=== PATIENT | female | born 1940 | race Caucasian/White ===

== ENCOUNTER 2023-09-27 15:58 | Emergency (ER) | payer MEDICARE, SELFPAY ==
[2023-09-27 15:59] VITALS: BP 127/61
[2023-09-27] MEDS: TYLENOL 650 MG PO (18:20)
[2023-09-27 19:06] VITALS: BP 153/73
[2023-09-27 19:36] VITALS: BP 142/62
--- NOTE | 2023-09-27 19:47 | ED.GENMED ---
History of Present Illness
General
Chief Complaint: Musculo-Skeletal Complaint
Source: patient
Exam Limitations: none
Time Seen by Provider: 09/27/23 17:36
Nursing documentation reviewed up to this point in time: agreed with
History of Present Illness
History of Present Illness:
83 Y/O F with h/o ICH, htn, hld
no thinners
here with left headache and neck pain after mechanical trip and fall whle walking up a ramp
she landed on her left shoulder and hip as well
no chest pain, shortness of breath, back pain, abdominal pain
a little nausea, no vomiting, no loc, no confusion
does have pain in her left neck and shoulder
h/o previous cervical fusion
Past History
Past History
ED Past Medical History: CVA, GERD, HTN, Hypercholesterolemia, Hypothyroidism and Other (Intracranial bleed, diverticulitis, osteoarthritis)
ED Past Surgical History: Gynecological and Orthopedic
Social History
Tobacco: Non-smoker
Alcohol: Occasional
Drug: None
Personal:
Living: with family
Employment: Retired
Family History
Family History: Other
Review of Systems
Review of Systems
Allergies reviewed?: Yes
All Other Systems: Not applicable
Phy Exam
Physical Exam
Physical Exam:
GENERAL: Alert , in no apparent distress
HEAD: mild tenderness, no hematoma left parietal scalp
NECK: no midline tenderness, some diffuse left paraspinal tedneress, lordosis of the spine after previous surgery
able to rotate
EYE: pupils equal and reactive, EOMs intact.
ENT: o/p clr, mmm. no hemotympanum
CARDIAC: Regular rate and rhythm, no edema
LUNGS: Clear breath sounds bilaterally, no acute respiratory distress, no wheezes/rales/rhonchi
ABDOMEN: Soft, without focal tenderness, no r/g, no cvat
NEUROLOGICAL: Alert and oriented, no focal neuro deficits, CN intact, 5/5 strength, sensation intact
SKIN: Warm and dry,
MUSCULOSKELETAL: L shoulder slightly painful with ROM but no deformity, no swelling
no humerus tendnress
left hip nontender, no appreciate dSTS
slight pain with flexion and rotation
PSYCH: Normal and appropriate interaction.
Course
Orders/Labs/Results
Orders:
Orders
09/27/23 18:04
CT Cervical Spine W/o Iv Contr Urgent
Comment:
Reason For Exam: left neck pain after fall
CT Head W/o Iv Contrast Urgent
Comment:
Reason For Exam: head strike
Acetaminophen [Tylenol] 650 mg PO NOW STA
CR Shoulder, Trauma - Left Urgent
Comment:
Reason For Exam: left shouldr pain
Hip, Left 2-3 Views [CR Hip - LT w/wo Pel 2-3 Vw*] Urgent
Comment:
Reason For Exam: left hip pain fall
Include a pelvis x-ray?: Yes
Vital Signs
Initial and Last Documented VS:
Initial Vital Signs
Temp Pulse Resp BP Pulse Ox
97.7 F 70 16 127/61 98
09/27/23 15:59 09/27/23 15:59 09/27/23 15:59 09/27/23 15:59 09/27/23 15:59
Last Documented Vital Signs
Temp Pulse Resp BP Pulse Ox
97.7 F 67 16 147/62 98
09/27/23 15:59 09/27/23 20:12 09/27/23 15:59 09/27/23 20:12 09/27/23 15:59
MDM/Problems Addressed
Differential Diagnosis Includes:
Contusion, head injury, cervical strain, fracture
MDM/Problems Addressed:
83-year-old mechanical trip and fall while walking today onto her left head and struck it twice without loss of consciousness but with a headache, left-sided neck pain, left shoulder pain and left hip pain. She was able to get up and walk. She is
able to range her hip with some discomfort and her shoulder. She does have a chronic rotator cuff tear. She also has previous neck surgery. She had no midline tenderness but some pain with range of motion. There were no significant hematomas on
her scalp. She is neurologically intact and not on any anticoagulants. Imaging all reviewed by me and negative for any fractures. She does have some incidental arthritis in postoperative changes in her spine. Brain precautions as needed and for
rest for possible concussion, though I suspect a minor head injury. Follow-up with family doctor, Tylenol for pain
*Critical Care Note
Total Time (30-74mins, 75-104mins- exclusive of procedures): Not Applicable
ED Attending Note
-
Portions of this chart may have been created with voice recognition software.� Occasional wrong word or��sound alike� substitutions may have occurred due to the inherent limitations of voice recognition software.
Discharge Plan
Departure
Patient Disposition: Home (Routine Discharge)
Date of Disposition: 09/27/23
Time of Disposition: 19:53
Patient with high blood pressure during this ER visit?: Yes
Condition: Fair
Covid-19: Not Applicable
Discharge Problem:
Mild closed head injury, Cervical muscle strain, Contusion
Instructions: Minor Head Injury, Adult ED, Contusion
Prescriptions:
No Action
cranberry 500 MG capsule
500 mg PO DAILY
Blood Pressure Medication
1 tab PO HS
Patient Comments:
01/18/2021: PT DOES NOT REMEMBER NAME OR STRENGTH. DR MCCORMICK NOT COMING UP WITH ANYTHING. USES [facility] IN [place]
Cholesterol Medication
1 tab PO HS
Patient Comments:
01/18/2021: PT DOES NOT REMEMBER NAME OR STRENGTH. DR MCCORMICK NOT COMING UP WITH ANYTHING. USES [facility] IN [place]
venlafaxine [Effexor XR] 37.5 MG capsule,extended release 24hr
37.5 mg PO DAILY
Patient Comments:
01/18/2021: TAKEN W/ 150MG = 187.5MG
gabapentin [Neurontin] 600 MG tablet
600 mg PO BID
venlafaxine [Effexor XR] 150 MG capsule,extended release 24hr
150 mg PO DAILY
Patient Comments:
01/18/2021: TAKEN W/ 37.5MG = 187.5MG
levothyroxine 100 MCG tablet
100 mcg PO Q48H
levothyroxine 88 MCG tablet
88 mcg PO Q48H
cholecalciferol (vitamin D3) 1,000 UNITS tablet
1,000 units PO DAILY
Lactobac 2-Bifido 1-S. therm [High Potency Probiotic] 1 CAP capsule
1 cap PO DAILY
multivitamin with folic acid [Tab-A-Karla] 1 TABLET tablet
1 tab PO DAILY
acetaminophen 325 MG tablet
650 mg PO Q4HPRN PRN (Reason: mild pain/ROSA/temp> 100.4F) 0RF
tramadol 50 MG tablet
25 mg PO Q6HPRN PRN (Reason: mod pain) 5 Days Qty: 15 0RF
metronidazole 500 MG tablet
500 mg PO TID 7 Days Qty: 21 0RF
albuterol sulfate 1 PUFF HFA aerosol inhaler
2 puff inhalation R Q4HPRN PRN (Reason: wheezing) Qty: 1 0RF
metronidazole 500 MG tablet
500 mg PO TID Qty: 29 0RF
levofloxacin 500 MG tablet
500 mg PO DAILY Qty: 9 0RF
hydrocodone-acetaminophen 1 TABLET tablet
1 tab PO Q4HPRN PRN (Reason: severe pain) Qty: 8 0RF
promethazine 25 MG tablet
25 mg PO Q6HPRN PRN (Reason: nausea) Qty: 8 0RF
prednisone 10 mg Tablet
See Rx Instructions .ROUTE .COMPLEX Qty: 30 0RF
Rx Instructions:
Take By Mouth:
40 mg daily x3 days, 30 mg daily x3 days,
20 mg daily x3 days, 10 mg daily x3 days.
hydrocodone-chlorpheniramine 10-8 mg/5 mL suspension,extended rel 12 hr
5 ml PO Q12H PRN (Reason: cough) Qty: 70 0RF
hydrocodone-acetaminophen 5-300 mg tablet
1 tab PO Q4H PRN (Reason: pain) Qty: 14 0RF
prednisone 20 mg tablet
40 mg PO DAILY Qty: 10 0RF
albuterol sulfate 90 mcg/actuation HFA aerosol inhaler
2 puff inhalation QID PRN (Reason: shortness of breath or wheezing) Qty: 6.7 0RF
Referrals:
Trinity Rothman, [Family Provider] - Follow up in 2-3 days
Activity Restrictions/Additional Instructions:
YOUR CAT SCANS AND XRAYS DO NOT SHOW ANY SIGN OF FRACTURES OR SERIOUS HEAD TRAUMA
TYLENOL EVERY 6 HOURS NEEDED FOR PAIN
ICE OFF AND ON
REST YOUR BRAIN - NO READING/TV/PHONE/COMPUTER IF YOU ARE HAVING HEADACHES, FOR 2 DAYS TO AVOID STRAINING AND PAIN
FOLLOW UP WITH YOUR DOCTOR AN OUTPATIENT
RETURN FOR ANY CONCERNS.
Interventions
Interventions:
*Risk Screen - Suicide Last Done: 09/27/23 17:13
*General Assessment Last Done: 09/27/23 15:59
*Neglect/Abuse Screening Last Done: 09/27/23 17:13
*ED COVID-19 Vaccine History Last Done: 09/27/23 15:59
*Nursing Disposition Last Done: 09/27/23 20:12
ED-Musculoskeletal Assessment Last Done: 09/27/23 17:13
Discharge Date and Time
Discharge Date/Time: 09/27/23 20:23
Print Language: DJIBOUTIAN
[2023-09-27 20:12] VITALS: BP 147/62
== END 2023-09-27 20:23 | disposition home or self-care (01) ==
LOC: EMR 15:58
PROVIDERS: EMERGENCY PHYSICIAN Emergency Medicine; FAMILY PHYSICIAN Family Medicine
DX: S09.90XA Unspecified injury of head, initial encounter (principal); S16.1XXA Strain of muscle, fascia and tendon at neck level, initial encounter; W01.0XXA Fall on same level from slipping, tripping and stumbling without subsequent striking against object, initial encounter; R51.9 Headache, unspecified; M54.2 Cervicalgia; I10 Essential (primary) hypertension; E78.00 Pure hypercholesterolemia, unspecified; K21.9 Gastro-esophageal reflux disease without esophagitis; E03.9 Hypothyroidism, unspecified; Z86.73 Personal history of transient ischemic attack (TIA), and cerebral infarction without residual deficits; Z96.642 Presence of left artificial hip joint
CPT/HCPCS: 99284; 70450; 72125; 73030; 73502

== ENCOUNTER 2023-11-09 20:05 | Emergency (ER) | payer MEDICARE, SELFPAY ==
[2023-11-09 20:08] VITALS: BP 134/66
[2023-11-09 20:32] VITALS: BMI 31.1
--- NOTE | 2023-11-09 20:37 | ED.GENMED ---
History of Present Illness
General
Chief Complaint: Abdominal Pain
Source: patient
Exam Limitations: none
Time Seen by Provider: 11/09/23 20:27
Nursing documentation reviewed up to this point in time: agreed with
History of Present Illness
History of Present Illness:
Patient presents to ED secondary to worsening left-sided abdominal pain with decreased appetite over the past 2 weeks. Patient was evaluated by her primary care physician in the office and was given diagnosis of possible diverticulitis.
Antibiotics was called into pharmacy, but patient was found to be allergic to that antibiotics. Alternative antibiotics was not called in, as her primary care physician went on vacation. Denies fever or chills. Denies vomiting or diarrhea.
Patient has not been able to have bowel movements since onset of her pain. Abdominal pain described as sharp, nonradiating, without any alleviating or exacerbating factors. Patient states that she has had history of diverticulitis, but states her
symptoms today are different.
Past History
Past History
ED Past Medical History: CVA, GERD, HTN, Hypercholesterolemia, Hypothyroidism and Other (Intracranial bleed, diverticulitis, osteoarthritis)
ED Past Surgical History: Gynecological and Orthopedic
Social History
Tobacco: Non-smoker
Alcohol: Occasional
Drug: None
Personal:
Living: with family
Employment: Retired
Family History
Family History: Other
Review of Systems
Review of Systems
Allergies reviewed?: Yes
All Other Systems: ROS reviewed and negative except as documented in HPI and ROS
Constitutional: Reports no symptoms
Respiratory: Reports no symptoms
Cardiac: Reports no symptoms
ABD/GI: Reports abdominal pain; Denies vomiting or diarrhea
Musculoskeletal: Reports no symptoms
Skin: Reports no symptoms
Neurological: Reports no symptoms
Phy Exam
Physical Exam
Physical Exam:
Physical Exam
General: moderate distress, not acutely ill. afebrile
Head: nc/at. eomi
Neck: supple. no meningeal signs.
Heart: s1/s2 regular rate and rhythm, no murmur. equal radial pulses.
Lungs: no acute respiratory distress. clear bilaterally
Abdomen: normal bowel sounds. mild LLQ tenderness to palpation with mild distention.
Neuro: alert and oriented. no focal neurological deficits
Skin: no rash
Psychiatric: well kept. interactive and cooperative
Extremities: no edema. no calf tenderness.
Course
Orders/Labs/Results
Orders:
Orders
11/09/23 20:37
CT Abd/pelvis W Iv Cont Urgent
Comment:
Reason For Exam: LLQ pain
HYDROmorphone [Dilaudid] 0.5 mg IV NOW STA
11/09/23 20:38
0.9% Sodium Chloride 500 ml [Nss] 500 ml IV BOLUS
11/09/23 20:42
Complete Blood Count/With Diff Urgent
Comprehensive Metabolic Panel Urgent
Magnesium Urgent
11/09/23 22:13
MetroNIDAZOLE [Flagyl] 500 mg PO NOW STA
11/09/23 22:14
LevoFLOXacin [Levaquin] 500 mg PO NOW STA
Abnormal Lab Results
11/09/23
20:42
RBC 4.17 L 10^6/uL
(4.20-5.40)
Hct 36.9 L %
(37.0-47.0)
Absolute Monos (auto) 0.8 H 10^3/uL
(0.1-0.6)
Monocytes % 10.9 H %
(1.7-9.3)
BUN 21 H mg/dl
(7-17)
11/09/23 20:42
11/09/23 20:42
Vital Signs
Initial and Last Documented VS:
Initial Vital Signs
Temp Pulse Resp BP Pulse Ox
98.1 F 72 18 134/66 95
11/09/23 20:08 11/09/23 20:08 11/09/23 20:08 11/09/23 20:08 11/09/23 20:08
Last Documented Vital Signs
Temp Pulse Resp BP Pulse Ox
98.1 F 65 14 134/66 95
11/09/23 20:08 11/09/23 20:45 11/09/23 20:45 11/09/23 20:08 11/09/23 20:45
MDM/Problems Addressed
MDM/Problems Addressed:
History, exam, and CT scan consistent with an acute diverticulitis, without evidence of perforation or abscess. Blood work unremarkable. Otherwise, patient remains afebrile and hemodynamically stable, and reports improvement symptoms after
treatment. After discussion with patient and family, decision made to discharge patient home with antibiotics. As patient successfully has taken Levaquin/Flagyl, with her previous episode of diverticulitis, patient will be given prescription for
Levaquin and Flagyl, along with recommendation for PCP follow-up. Advised to return to ED with worsening symptoms, i.e. fever/worsening pain/vomiting.
*Critical Care Note
Total Time (30-74mins, 75-104mins- exclusive of procedures): Not Applicable
ED Attending Note
-
Portions of this chart may have been created with voice recognition software.� Occasional wrong word or��sound alike� substitutions may have occurred due to the inherent limitations of voice recognition software.
Discharge Plan
Departure
Patient Disposition: Home (Routine Discharge)
Date of Disposition: 11/09/23
Time of Disposition: 22:15
Patient with high blood pressure during this ER visit?: Yes
Discharge Problem:
Diverticulitis
Instructions: Diverticulitis (DC)
Prescriptions:
New
levofloxacin 500 mg tablet
500 mg PO DAILY Qty: 9 0RF
metronidazole 500 mg tablet
500 mg PO TID Qty: 29 0RF
oxycodone-acetaminophen [Percocet] 5-325 mg Tablet
1 tab PO Q6HPRN PRN (Reason: pain) Qty: 8 0RF
ondansetron 4 mg Tablet,Disintegrating
4 mg PO TIDPRN PRN (Reason: nausea/vomiting) Qty: 12 0RF
No Action
cranberry 500 MG capsule
500 mg PO DAILY
Blood Pressure Medication
1 tab PO HS
Patient Comments:
01/18/2021: PT DOES NOT REMEMBER NAME OR STRENGTH. DR MCCORMICK NOT COMING UP WITH ANYTHING. USES [facility] IN [place]
Cholesterol Medication
1 tab PO HS
Patient Comments:
01/18/2021: PT DOES NOT REMEMBER NAME OR STRENGTH. DR MCCORMICK NOT COMING UP WITH ANYTHING. USES [facility] IN [place]
venlafaxine [Effexor XR] 37.5 MG capsule,extended release 24hr
37.5 mg PO DAILY
Patient Comments:
01/18/2021: TAKEN W/ 150MG = 187.5MG
gabapentin [Neurontin] 600 MG tablet
600 mg PO BID
venlafaxine [Effexor XR] 150 MG capsule,extended release 24hr
150 mg PO DAILY
Patient Comments:
01/18/2021: TAKEN W/ 37.5MG = 187.5MG
levothyroxine 100 MCG tablet
100 mcg PO Q48H
levothyroxine 88 MCG tablet
88 mcg PO Q48H
cholecalciferol (vitamin D3) 1,000 UNITS tablet
1,000 units PO DAILY
Lactobac 2-Bifido 1-S. therm [High Potency Probiotic] 1 CAP capsule
1 cap PO DAILY
multivitamin with folic acid [Tab-A-Karla] 1 TABLET tablet
1 tab PO DAILY
acetaminophen 325 MG tablet
650 mg PO Q4HPRN PRN (Reason: mild pain/ROSA/temp> 100.4F) 0RF
tramadol 50 MG tablet
25 mg PO Q6HPRN PRN (Reason: mod pain) 5 Days Qty: 15 0RF
metronidazole 500 MG tablet
500 mg PO TID 7 Days Qty: 21 0RF
albuterol sulfate 1 PUFF HFA aerosol inhaler
2 puff inhalation R Q4HPRN PRN (Reason: wheezing) Qty: 1 0RF
metronidazole 500 MG tablet
500 mg PO TID Qty: 29 0RF
levofloxacin 500 MG tablet
500 mg PO DAILY Qty: 9 0RF
hydrocodone-acetaminophen 1 TABLET tablet
1 tab PO Q4HPRN PRN (Reason: severe pain) Qty: 8 0RF
promethazine 25 MG tablet
25 mg PO Q6HPRN PRN (Reason: nausea) Qty: 8 0RF
prednisone 10 mg Tablet
See Rx Instructions .ROUTE .COMPLEX Qty: 30 0RF
Rx Instructions:
Take By Mouth:
40 mg daily x3 days, 30 mg daily x3 days,
20 mg daily x3 days, 10 mg daily x3 days.
hydrocodone-chlorpheniramine 10-8 mg/5 mL suspension,extended rel 12 hr
5 ml PO Q12H PRN (Reason: cough) Qty: 70 0RF
hydrocodone-acetaminophen 5-300 mg tablet
1 tab PO Q4H PRN (Reason: pain) Qty: 14 0RF
prednisone 20 mg tablet
40 mg PO DAILY Qty: 10 0RF
albuterol sulfate 90 mcg/actuation HFA aerosol inhaler
2 puff inhalation QID PRN (Reason: shortness of breath or wheezing) Qty: 6.7 0RF
Referrals:
Trinity Rothman, [Family Provider] -
Activity Restrictions/Additional Instructions:
As discussed, please follow-up with your primary care doctor for further evaluation and treatment. Please return to ED with worsening symptoms, i.e. fever/worsening pain/vomiting. Your prescriptions have been sent electronically to [facility]
pharmacy in [place].
Interventions
Interventions:
*Risk Screen - Suicide Last Done: 11/09/23 20:08
*General Assessment Last Done: 11/09/23 20:08
*Neglect/Abuse Screening Last Done: 11/09/23 20:08
ED- Fall Risk Assessment Last Done: 11/09/23 20:33
*ED COVID-19 Vaccine History Last Done: 11/09/23 20:19
*Nursing Disposition Last Done: 11/09/23 22:54
SJ-Dkhbph-Enjfczhnxr Assessment Last Done: 11/09/23 20:33
Discharge Date and Time
Discharge Date/Time: 11/09/23 22:55
Print Language: BELARUSIAN
[2023-11-09] MEDS: NSS 500 IV (20:45)
[2023-11-09] MEDS: DILAUDID 0.5 MG IV (20:45)
[2023-11-09 20:48] LABS: % Basophils 0.7 % (0-2); % Eosinophils 4.7 % (0-6); % Immature Granulocytes 0.3 % (0-0.5); % Lymphocytes 37.3 % (20.5-51.1); % Monocytes 10.9 % (1.7-9.3); % Neutrophils 46.1 % (42.2-75.2); Absolute Basophils 0.1 10^3/uL (0-0.2); Absolute Eosinophils 0.4 10^3/uL (0-0.7); Absolute Lymphocytes 2.8 10^3/uL (1.2-3.4); Absolute Monocytes 0.8 10^3/uL (0.1-0.6); Absolute Neutrophils 3.4 10^3/uL (1.4-6.5); Hematocrit 36.9 % (37.0-47.0); Hemoglobin 12.9 g/dL (12.0-16.0); Mean Corpuscular Hgb 30.9 pg (27.0-31.0); Mean Corpuscular Volume 88.5 fL (81.0-99.0); Mean Platelet Volume 9.2 fL (7.4-10.4); Nucleated Red Blood Cells % 0 %; Platelet Count 232 10^3/uL (130-400); Red Blood Cell Count 4.17 10^6/uL (4.20-5.40); Red Cell Dist. Width 12.7 % (11.5-14.5); White Blood Cell Count 7.4 10^3/uL (4.8-10.8)
[2023-11-09 21:06] LABS: ALT (SGPT) 21 U/L (0-35); AST (SGOT) 28 U/L (14-36); Albumin 4.3 g/dl (3.5-5.0); Alkaline Phosphatase 91 U/L (38-126); Blood Urea Nitrogen 21 mg/dl (7-17); Carbon Dioxide 26 mmol/L (22-30); Chloride 105 mmol/L (98-107); Estimated Creatinine Clearance 61 ml/min; Glucose 87 mg/dl (70-99); Magnesium 1.8 mg/dl (1.6-2.3); Sodium 138 mmol/L (135-145); Total Bilirubin 0.4 mg/dl (0.2-1.3); Total Protein 6.7 g/dl (6.3-8.2); eGFR > 60.00
[2023-11-09] MEDS: LEVAQUIN 500 MG PO (22:39)
[2023-11-09] MEDS: FLAGYL 500 MG PO (22:39)
== END 2023-11-09 22:55 | disposition home or self-care (01) ==
LOC: EMR 20:05
PROVIDERS: EMERGENCY PHYSICIAN Emergency Medicine; FAMILY PHYSICIAN Family Medicine
DX: K57.32 Diverticulitis of large intestine without perforation or abscess without bleeding (principal); K21.9 Gastro-esophageal reflux disease without esophagitis; I10 Essential (primary) hypertension; E78.00 Pure hypercholesterolemia, unspecified; E03.9 Hypothyroidism, unspecified; M19.90 Unspecified osteoarthritis, unspecified site; Z86.73 Personal history of transient ischemic attack (TIA), and cerebral infarction without residual deficits
CPT/HCPCS: 99284; 96374; 74177; 80053; 83735; 85025; Q9967

== ENCOUNTER 2023-11-12 16:05 | Emergency (ER) | payer MEDICARE, SELFPAY ==
[2023-11-12 16:07] VITALS: BP 166/89
--- NOTE | 2023-11-12 16:16 | ED.PDOC.TRB ---
ED Provider Triage
-
83 female with increased abdominal pain. Was here 11/08 and diagnosed with diverticulitis. Started on levaquin/flagyl. Pain is worsened, now with chills. Quite tender on exam. Has been hospitalized in the past for diverticulitis. Zofran ordered,
labs ordered. Repeat CT ordered to eval for abscess/perforation.
[2023-11-12] MEDS: TORADOL 15 MG IV (16:31)
[2023-11-12] MEDS: ZOFRAN 4 MG IV (16:32)
[2023-11-12 17:05] LABS: ALT (SGPT) 20 U/L (0-35); AST (SGOT) 33 U/L (14-36); Albumin 4.5 g/dl (3.5-5.0); Alkaline Phosphatase 81 U/L (38-126); Blood Urea Nitrogen 22 mg/dl (7-17); Calcium 10.2 mg/dl (8.4-10.2); Carbon Dioxide 25 mmol/L (22-30); Chloride 106 mmol/L (98-107); Glucose 102 mg/dl (70-99); Potassium 3.8 mmol/L (3.5-5.1); Sodium 139 mmol/L (135-145); Total Bilirubin 0.4 mg/dl (0.2-1.3); Total Protein 6.8 g/dl (6.3-8.2); eGFR > 60.00
[2023-11-12 17:16] LABS: % Basophils 0.8 % (0-2); % Eosinophils 2.9 % (0-6); % Immature Granulocytes 0.3 % (0-0.5); % Lymphocytes 27.7 % (20.5-51.1); % Monocytes 8.8 % (1.7-9.3); % Neutrophils 59.5 % (42.2-75.2); Absolute Basophils 0.1 10^3/uL (0-0.2); Absolute Eosinophils 0.2 10^3/uL (0-0.7); Absolute Lymphocytes 2.1 10^3/uL (1.2-3.4); Absolute Monocytes 0.7 10^3/uL (0.1-0.6); Absolute Neutrophils 4.6 10^3/uL (1.4-6.5); Hematocrit 40.4 % (37.0-47.0); Mean Corp Hgb Conc. 34.7 g/dL (33.0-37.0); Mean Corpuscular Hgb 31.2 pg (27.0-31.0); Mean Platelet Volume 9.6 fL (7.4-10.4); Nucleated Red Blood Cells % 0 %; Platelet Count 259 10^3/uL (130-400); Red Blood Cell Count 4.49 10^6/uL (4.20-5.40); Red Cell Dist. Width 12.5 % (11.5-14.5); White Blood Cell Count 7.7 10^3/uL (4.8-10.8)
[2023-11-12 17:26] VITALS: BMI 30.7
[2023-11-12 17:32] VITALS: BP 152/67
[2023-11-12 18:00] VITALS: BP 140/73
--- NOTE | 2023-11-12 19:06 | ED.GENMED ---
History of Present Illness
General
Chief Complaint: Abdominal Pain
Source: patient and spouse
Time Seen by Provider: 11/12/23 18:49
History of Present Illness
History of Present Illness:
83-year-old female presents to the emergency room complaining of abdominal pain. Patient was seen here in the emergency room 3 days ago for similar symptoms. She had a CAT scan which revealed diverticulitis. Patient was discharged on Levaquin and
Flagyl. Patient feels the pain is increased in intensity. Pain was quite severe yesterday and this morning. She was given some analgesia after being evaluated in triage which has helped significantly. She has mild nausea but has not vomited. No
fever, chills. Patient is also been experiencing constipation for the past week or so.
Past History
Past History
ED Past Medical History: CVA, GERD, HTN, Hypercholesterolemia, Hypothyroidism and Other (Intracranial bleed, diverticulitis, osteoarthritis)
ED Past Surgical History: Gynecological and Orthopedic
Social History
Tobacco: Non-smoker
Alcohol: Occasional
Drug: None
Personal:
Living: with family
Employment: Retired
Family History
Family History: Other
Phy Exam
Physical Exam
Physical Exam:
General: Awake, Alert, Oriented X3. No acute distress, appears stated age
Vitals: unremarkable
Head: Atraumatic
Eyes: Pupils equal, EOMI
Throat: Airway intact, no exudates, mildly dry mucosa
Neck: Trachea midline
Lungs: Clear and equal b/l
Heart: Regular rate, no murmurs
Abd: Soft, moderate tenderness diffusely with significant tenderness in the left lower quadrant, does not appear to have a surgical abdomen, no pulsatile mass
Neuro: Nonfocal
Skin: Warm, dry, no rash
Extremities: pulses equal b/l, no edema
Course
Orders/Labs/Results
Orders:
Orders
11/12/23 16:09
IV Insert/Care/Rem.- Treatment PRN
11/12/23 16:14
CT Abd/pelvis W Iv Cont Urgent
Comment:
Reason For Exam: LLQ pain
Ondansetron Injectable [Zofran] 4 mg IV NOW STA
11/12/23 16:28
Ketorolac [Toradol] 15 mg IV NOW STA
11/12/23 16:35
Complete Blood Count/With Diff Urgent
Comprehensive Metabolic Panel Urgent
11/12/23 19:10
MetroNIDAZOLE 500 MG/100 ML [Flagyl 500 mg] 100 ml IV NOW
11/12/23 21:19
Acetaminophen [Tylenol] 1,000 mg PO NOW STA
Lactulose [Duphalac/Chronulac] 20 grams PO NOW STA
Abnormal Lab Results
11/12/23
16:35
MCH 31.2 H pg
(27.0-31.0)
Absolute Monos (auto) 0.7 H 10^3/uL
(0.1-0.6)
BUN 22 H mg/dl
(7-17)
Glucose 102 H mg/dl
(70-99)
11/12/23 16:35
11/12/23 16:35
Vital Signs
Initial and Last Documented VS:
Initial Vital Signs
Temp Pulse Resp BP Pulse Ox
98.3 F 73 20 166/89 98
11/12/23 16:07 11/12/23 16:07 11/12/23 16:07 11/12/23 16:07 11/12/23 16:07
Last Documented Vital Signs
Temp Pulse Resp BP Pulse Ox
98.3 F 63 16 133/80 94
11/12/23 16:07 11/12/23 18:00 11/12/23 18:00 11/12/23 20:00 11/12/23 20:45
MDM/Problems Addressed
Differential Diagnosis Includes:
Microperforation, abscess formation, persistent diverticulitis,
MDM/Problems Addressed:
Patient presents with pain that has not improved despite antibiotics. Reviewing patient's's visit I see history CAT scan this. Her exam suggests she does not have carmen free air but she certainly may have a microperforation developing abscess.
CT actually showed resolution of diverticulitis. Current radiology report shows no evidence of diverticulitis. She does have stool throughout the colon on my observation. Patient's pointed out that she has not had a bowel been in over a
week. Perhaps her pain is more due to constipation than diverticulitis. She should certainly continue the antibiotics but we will also start laxatives in the form of lactulose. I do not believe the patient has progression or. Has failed
outpatient management of diverticulitis as her white count is normal and the CAT scan has improved. Patient will return if she is not feeling better after using the lactulose.
*Radiology
Radiology exam reviewed: radiology read reviewed
*Pulse Oximetry
Patient hypoxic: no
*Critical Care Note
Total Time (30-74mins, 75-104mins- exclusive of procedures): Not Applicable
Patient Management
Social determinants of health affecting care: Living situation and Strong social support
ED Attending Note
-
Portions of this chart may have been created with voice recognition software.� Occasional wrong word or��sound alike� substitutions may have occurred due to the inherent limitations of voice recognition software.
Discharge Plan
Departure
Patient Disposition: Home (Routine Discharge)
Date of Disposition: 11/12/23
Time of Disposition: 21:17
Patient with high blood pressure during this ER visit?: No
Condition: Good
Discharge Problem:
Diverticulitis, Constipation
Instructions: Constipation, Adult (DC), Diverticulitis (DC)
Prescriptions:
New
ondansetron 4 mg tablet,disintegrating
4 mg PO TID PRN (Reason: nausea and vomiting) Qty: 20 0RF
lactulose 20 gram/30 mL solution
20 g PO BID Qty: 1200 0RF
Rx Instructions:
Take twice a day until you feel you have had adequate bowel movements
No Action
cranberry 500 MG capsule
500 mg PO DAILYPRN PRN (Reason: Supplement)
venlafaxine [Effexor XR] 150 MG capsule,extended release 24hr
150 mg PO DAILY
Patient Comments:
taken w/ 75mg = 225mg
levothyroxine 100 MCG tablet
100 mcg PO DAILY
multivitamin with folic acid [Tab-A-Karla] 1 TABLET tablet
1 tab PO DAILY
venlafaxine 75 mg capsule,extended release 24hr
75 mg PO DAILY
Patient Comments:
taken w/ 150mg = 225mg
ondansetron HCl 4 mg tablet
4 mg PO BIDPRN PRN (Reason: nausea/vomiting)
ciprofloxacin HCl 500 mg tablet
500 mg PO BID
trazodone 100 mg tablet
100 mg PO HS
ergocalciferol (vitamin D2) 1,250 mcg (50,000 unit) capsule
1,250 mcg PO MO
losartan 100 mg tablet
100 mg PO DAILY
fenofibrate 160 mg tablet
160 mg PO DAILY
albuterol sulfate 90 mcg/actuation HFA aerosol inhaler
2 puff inhalation R Q4HPRN PRN (Reason: shortness of breath or wheezing)
Referrals:
UNKNOWN - PT DOES,NOT KNOW [Family Provider] -
Interventions
Interventions:
*Risk Screen - Suicide Last Done: 11/12/23 16:07
*General Assessment Last Done: 11/12/23 16:07
*Neglect/Abuse Screening Last Done: 11/12/23 16:07
ED- Fall Risk Assessment Last Done: 11/12/23 17:27
*ED COVID-19 Vaccine History Last Done: 11/12/23 17:27
*Nursing Disposition Last Done: 11/12/23 21:50
SX-Vttkxi-Wcofxrbxhp Assessment Last Done: 11/12/23 17:28
Discharge Date and Time
Discharge Date/Time: 11/12/23 21:50
Print Language: THAI
[2023-11-12 19:30] VITALS: BP 159/65
[2023-11-12] MEDS: FLAGYL 500 MG 100 IV (19:32)
[2023-11-12 20:00] VITALS: BP 133/80
[2023-11-12] MEDS: TYLENOL 1000 MG PO (21:28)
[2023-11-12] MEDS: DUPHALAC/CHRONULAC 20 GRAMS PO (21:28)
== END 2023-11-12 21:50 | disposition home or self-care (01) ==
LOC: EMR 16:05
PROVIDERS: Physician Assistant; EMERGENCY PHYSICIAN Emergency Medicine
DX: K57.32 Diverticulitis of large intestine without perforation or abscess without bleeding (principal); K59.00 Constipation, unspecified; R11.0 Nausea; I10 Essential (primary) hypertension; K21.9 Gastro-esophageal reflux disease without esophagitis; E78.00 Pure hypercholesterolemia, unspecified; E03.9 Hypothyroidism, unspecified; M19.90 Unspecified osteoarthritis, unspecified site; Z86.73 Personal history of transient ischemic attack (TIA), and cerebral infarction without residual deficits; Z88.1 Allergy status to other antibiotic agents; Z88.5 Allergy status to narcotic agent; Z88.0 Allergy status to penicillin; Z88.8 Allergy status to other drugs, medicaments and biological substances; Z91.048 Other nonmedicinal substance allergy status
CPT/HCPCS: 99285; 96375 ×2; 96365; 74177; 80053; 85025; Q9967

== ENCOUNTER 2024-02-24 12:37 | Emergency (ER) | payer MEDICARE, SELFPAY ==
[2024-02-24 12:40] VITALS: BP 181/97
[2024-02-24 13:23] VITALS: BMI 29.2
[2024-02-24 13:31] LABS: % Basophils 1.2 % (0-2); % Eosinophils 2.5 % (0-6); % Immature Granulocytes 0.2 % (0-0.5); % Monocytes 8.9 % (1.7-9.3); % Neutrophils 46.2 % (42.2-75.2); Absolute Basophils 0.1 10^3/uL (0-0.2); Absolute Eosinophils 0.2 10^3/uL (0-0.7); Absolute Lymphocytes 2.7 10^3/uL (1.2-3.4); Absolute Monocytes 0.6 10^3/uL (0.1-0.6); Hemoglobin 14.2 g/dL (12.0-16.0); Mean Corpuscular Hgb 30.8 pg (27.0-31.0); Mean Corpuscular Volume 93.3 fL (81.0-99.0); Mean Platelet Volume 9.2 fL (7.4-10.4); Nucleated Red Blood Cells % 0 %; Platelet Count 228 10^3/uL (130-400); Red Blood Cell Count 4.61 10^6/uL (4.20-5.40); Red Cell Dist. Width 13.2 % (11.5-14.5); White Blood Cell Count 6.5 10^3/uL (4.8-10.8)
[2024-02-24 13:46] LABS: ALT (SGPT) 24 U/L (0-35); AST (SGOT) 31 U/L (14-36); Albumin 4.4 g/dl (3.5-5.0); Alkaline Phosphatase 80 U/L (38-126); Blood Urea Nitrogen 15 mg/dl (7-17); Calcium 10.1 mg/dl (8.4-10.2); Carbon Dioxide 29 mmol/L (22-30); Chloride 104 mmol/L (98-107); Estimated Creatinine Clearance 71 ml/min; Glucose 87 mg/dl (70-99); Lipase 34 U/L (23-300); Potassium 4.2 mmol/L (3.5-5.1); Sodium 141 mmol/L (135-145); Total Bilirubin 0.7 mg/dl (0.2-1.3); Total Protein 6.8 g/dl (6.3-8.2); eGFR > 60.00
--- NOTE | 2024-02-24 14:04 | ED.GENMED ---
History of Present Illness
<Breanna Pereira MD, Resident - Last Filed: 02/24/24 14:50>
General
Chief Complaint: Abdominal Symptoms
Time Seen by Provider: 02/24/24 13:37
History of Present Illness
History of Present Illness:
83-year-old female with past medical history of diverticulitis, constipation, CVA, GERD, hypertension, hyper cholesterolemia hypothyroidism presenting to ED with lower abdominal pain since 2 weeks ago. Patient notes pain is intermittent,
radiates to the back and is relieved with Tylenol. Notes nausea when bending forward. Has had chills but no fever. Denies vomiting, melena, hematochezia, urinary symptoms, loose stools, cough, change in bowel movements. Was treated with
antibiotics (penicillin and Keflex) for a sinus infection about 2 weeks ago.
<Bowen Barrera MD - Last Filed: 02/24/24 23:02>
General
Source: patient
Exam Limitations: none
Nursing documentation reviewed up to this point in time: agreed with
Past History
<Breanna Pereira MD, Resident - Last Filed: 02/24/24 14:50>
Past History
ED Past Medical History: CVA, GERD, HTN, Hypercholesterolemia, Hypothyroidism and Other (Intracranial bleed, diverticulitis, osteoarthritis)
ED Past Surgical History: Gynecological and Orthopedic
Social History
Tobacco: Non-smoker
Alcohol: Occasional
Drug: None
Personal:
Living: with family
Employment: Retired
Family History
Family History: Other
Review of Systems
<Breanna Pereira MD, Resident - Last Filed: 02/24/24 14:50>
Review of Systems
Constitutional: Reports chills
EENT: Reports no symptoms
Respiratory: Reports no symptoms
Cardiac: Reports no symptoms
ABD/GI: Reports abdominal pain (Left lower) and nausea
: Reports no symptoms
Musculoskeletal: Reports no symptoms
Skin: Reports no symptoms
Neurological: Reports no symptoms
Endocrine: Reports no symptoms
Hematologic/Lymphatic: Reports no symptoms
Psychiatric: Reports no symptoms
Phy Exam
<Breanna Pereira MD, Resident - Last Filed: 02/24/24 14:50>
Physical Exam
Physical Exam:
GENERAL: Alert, in no apparent distress
EYE: pupils equal and reactive
NECK: Supple, no significant adenopathy. Surgical incision seen on anterior upper chest.
ENT: o/p clr, mmm.
CARDIAC: Regular rate and rhythm.
LUNGS: Clear breath sounds bilaterally, no acute respiratory distress, no wheezes/rales/rhonchi
ABDOMEN: Soft, mild tenderness in left lower quadrant, no r/g, no cvat.
NEUROLOGICAL: Alert and oriented, no focal neuro deficits
SKIN: Warm and dry, skin intact.
MUSCULOSKELETAL: No edema, well perfused.
PSYCH: Normal and appropriate interaction.
Course
<Breanna Pereira MD, Resident - Last Filed: 02/24/24 14:50>
Orders/Labs/Results
Orders:
Orders
02/24/24 13:25
Complete Blood Count/With Diff Urgent
Comprehensive Metabolic Panel Urgent
Lipase Urgent
02/24/24 15:09
CT Abd/pelvis W Iv Cont Urgent
Comment:
Reason For Exam: LLQ pain
Ketorolac [Toradol] 15 mg .ROUTE .STK-MED ONE
Ketorolac [Toradol] 15 mg IV NOW STA
Pantoprazole [Protonix IV] 40 mg .ROUTE .STK-MED ONE
Pantoprazole [Protonix IV] 40 mg IV NOW STA
02/24/24 13:25
02/24/24 13:25
Vital Signs
Initial and Last Documented VS:
Initial Vital Signs
Temp Pulse Resp BP Pulse Ox
98.0 F 76 18 181/97 96
02/24/24 12:40 02/24/24 12:40 02/24/24 12:40 02/24/24 12:40 02/24/24 12:40
Last Documented Vital Signs
Temp Pulse Resp BP Pulse Ox
98.0 F 65 18 170/77 97
02/24/24 12:40 02/24/24 15:12 02/24/24 15:12 02/24/24 15:12 02/24/24 15:12
<Bowen Barrera MD - Last Filed: 02/24/24 23:02>
Orders/Labs/Results
Orders:
Orders
02/24/24 13:25
Complete Blood Count/With Diff Urgent
Comprehensive Metabolic Panel Urgent
Lipase Urgent
02/24/24 15:09
CT Abd/pelvis W Iv Cont Urgent
Comment:
Reason For Exam: LLQ pain
Ketorolac [Toradol] 15 mg .ROUTE .STK-MED ONE
Ketorolac [Toradol] 15 mg IV NOW STA
Pantoprazole [Protonix IV] 40 mg .ROUTE .STK-MED ONE
Pantoprazole [Protonix IV] 40 mg IV NOW STA
02/24/24 13:25
02/24/24 13:25
Vital Signs
Initial and Last Documented VS:
Initial Vital Signs
Temp Pulse Resp BP Pulse Ox
98.0 F 76 18 181/97 96
02/24/24 12:40 02/24/24 12:40 02/24/24 12:40 02/24/24 12:40 02/24/24 12:40
Last Documented Vital Signs
Temp Pulse Resp BP Pulse Ox
98.0 F 65 18 170/77 97
02/24/24 12:40 02/24/24 15:12 02/24/24 15:12 02/24/24 15:12 02/24/24 15:12
<Breanna Pereira MD, Resident - Last Filed: 02/24/24 14:50>
MDM/Problems Addressed
Differential Diagnosis Includes:
Diverticulitis
Colitis
Pyelonephritis/UTI
Pancreatitis
Appendicitis
Nephrolithiasis
AAA
<Breanna Pereira MD, Resident - Last Filed: 02/24/24 14:50>
*Critical Care Note
Total Time (30-74mins, 75-104mins- exclusive of procedures): Not Applicable
ED Attending Note
<Breanna Pereira MD, Resident - Last Filed: 02/24/24 14:50>
-
Portions of this chart may have been created with voice recognition software.� Occasional wrong word or��sound alike� substitutions may have occurred due to the inherent limitations of voice recognition software.
<Bowen Barrera MD - Last Filed: 02/24/24 23:02>
ED Attending Note
Patient seen and examined by attending physician: Yes
ED Attending Note:
Patient presents to ED secondary to 2-week history of intermittent left-sided abdominal pain. Abdominal pain described as crampy, nonradiating, worse when leaning forward, without any alleviating factors. Denies direct trauma. Denies fever or
chills. Denies diarrhea. Denies nausea or vomiting. Denies sick contact. Of note, patient was evaluated at another facility at onset of her symptoms, and was prescribed penicillin for sinusitis along with abdominal pain, which stopped 2 days
afterwards because she developed rash and did not feel good. Patient has had history of diverticulitis and feels as though her symptoms are similar.
Physical Exam
General: no apparent distress, not acutely ill. Afebrile
Head: nc/at. eomi
Neck: supple. no meningeal signs.
Heart: s1/s2 regular rate and rhythm, no murmur. equal radial pulses.
Lungs: no acute respiratory distress. clear bilaterally
Abdomen: normal bowel sounds. no distention. minimal LLQ/suprapubic tenderness to palpation, without rebound/guarding
Neuro: alert and oriented. no focal neurological deficits
Skin: no rash
Psychiatric: well kept. interactive and cooperative
Extremities: no edema. no calf tenderness.
Pt with unremarkable workup in ED, including blood work and CT abd/pel. Patient otherwise remains afebrile, hemodynamically stable, and nontoxic-appearing. Repeat abdominal exam: Soft and nontender. As such, decision made to discharge patient
home without any further workup or any acute treatment, i.e. antibiotics. Advised bland diet, continue fluids, along with PCP follow-up. Patient will return to ED with significant worsening symptoms, i.e. fever/worsening pain/vomiting. Patient
expresses understanding at time of discharge, to the care of her spouse. In addition, as patient has had multiple episode diverticulitis, patient will be referred to colorectal surgery for an outpatient consultation as well.
Discharge Plan
Departure
Patient Disposition: Home (Routine Discharge)
Date of Disposition: 02/24/24
Time of Disposition: 17:53
Patient with high blood pressure during this ER visit?: Yes
Condition: Fair
Discharge Problem:
Abdominal pain
Instructions: Diverticulosis (DC), High-fiber diet, Abdominal Pain
Prescriptions:
No Action
cranberry 500 MG capsule
500 mg PO DAILYPRN PRN (Reason: Supplement)
venlafaxine [Effexor XR] 150 MG capsule,extended release 24hr
150 mg PO DAILY
Patient Comments:
taken w/ 75mg = 225mg
levothyroxine 100 MCG tablet
100 mcg PO DAILY
multivitamin with folic acid [Tab-A-Karla] 1 TABLET tablet
1 tab PO DAILY
venlafaxine 75 mg capsule,extended release 24hr
75 mg PO DAILY
Patient Comments:
taken w/ 150mg = 225mg
ondansetron HCl 4 mg tablet
4 mg PO BIDPRN PRN (Reason: nausea/vomiting)
ciprofloxacin HCl 500 mg tablet
500 mg PO BID
trazodone 100 mg tablet
100 mg PO HS
ergocalciferol (vitamin D2) 1,250 mcg (50,000 unit) capsule
1,250 mcg PO MO
losartan 100 mg tablet
100 mg PO DAILY
fenofibrate 160 mg tablet
160 mg PO DAILY
albuterol sulfate 90 mcg/actuation HFA aerosol inhaler
2 puff inhalation R Q4HPRN PRN (Reason: shortness of breath or wheezing)
ondansetron 4 mg tablet,disintegrating
4 mg PO TID PRN (Reason: nausea and vomiting) Qty: 20 0RF
lactulose 20 gram/30 mL solution
20 g PO BID Qty: 1200 0RF
Rx Instructions:
Take twice a day until you feel you have had adequate bowel movements
Referrals:
Lazaro Abebe MD [Active] -
Trinity Rothman DO [Family Provider] -
Activity Restrictions/Additional Instructions:
As discussed, please follow-up with your primary care physician and/or referred to colorectal surgeon for further evaluation and treatment. Please return to ED immediately with worsening symptoms, i.e. fever/worsening pain/vomiting.
Interventions
Interventions:
*Risk Screen - Suicide Last Done: 02/24/24 12:40
*General Assessment Last Done: 02/24/24 12:40
*Neglect/Abuse Screening Last Done: 02/24/24 12:40
*Nursing Disposition Last Done: 02/24/24 18:49
KN-Kvkjku-Rdvjguhcyh Assessment Last Done: 02/24/24 13:23
Discharge Date and Time
Discharge Date/Time: 02/24/24 18:50
Print Language: THAI
[2024-02-24 15:12] VITALS: BP 170/77
[2024-02-24] MEDS: TORADOL 15 MG IV (15:12)
[2024-02-24] MEDS: PROTONIX IV 40 MG IV (15:12)
== END 2024-02-24 18:50 | disposition home or self-care (01) ==
LOC: EMR 12:37
PROVIDERS: Emergency Medicine; EMERGENCY PHYSICIAN Emergency Medicine; FAMILY PHYSICIAN Family Medicine
DX: R10.30 Lower abdominal pain, unspecified (principal); E78.00 Pure hypercholesterolemia, unspecified; E03.9 Hypothyroidism, unspecified; I10 Essential (primary) hypertension; K21.9 Gastro-esophageal reflux disease without esophagitis; Z86.73 Personal history of transient ischemic attack (TIA), and cerebral infarction without residual deficits; Z87.19 Personal history of other diseases of the digestive system
CPT/HCPCS: 96374; 96375; 99284; 74177; 80053; 83690; 85025; Q9967

== ENCOUNTER → 2024-05-19 12:26 | Outpatient (REF) | payer MEDICARE, SELFPAY | LOC: RAD 12:26 | PROVIDERS: ATTENDING PHYSICIAN Internal Medicine; FAMILY PHYSICIAN Family Medicine | DX: R10.30 Lower abdominal pain, unspecified (principal) | CPT/HCPCS: 75635; Q9967 ==

== ENCOUNTER → 2024-05-27 13:52 | Outpatient (REF) | payer MEDICARE, SELFPAY | LOC: HWRCS 13:52 | PROVIDERS: ATTENDING PHYSICIAN Internal Medicine Cardiovascular Disease; FAMILY PHYSICIAN Family Medicine | DX: R06.02 Shortness of breath (principal) | CPT/HCPCS: 93306 ==

== ENCOUNTER → 2024-06-27 13:47 | Outpatient (REF) | payer MEDICARE, SELFPAY | LOC: HWRAD 13:47 | PROVIDERS: ATTENDING PHYSICIAN Internal Medicine; FAMILY PHYSICIAN Family Medicine | DX: G45.9 Transient cerebral ischemic attack, unspecified (principal); R10.30 Lower abdominal pain, unspecified; R19.8 Other specified symptoms and signs involving the digestive system and abdomen | CPT/HCPCS: 74019; 93880 ==

== ENCOUNTER 2024-07-05 09:56 | Emergency (ER) | payer MEDICARE, SELFPAY ==
[2024-07-05] VITALS (8 sets, daily range): BP systolic 112–188; BP diastolic 74–111; BMI 30.5
[2024-07-05 10:21] LABS: % Basophils 1.2 % (0-2); % Eosinophils 3.1 % (0-6); % Immature Granulocytes 0.2 % (0-0.5); % Lymphocytes 42.2 % (20.5-51.1); % Neutrophils 41.3 % (42.2-75.2); Absolute Basophils 0.1 10^3/uL (0-0.2); Absolute Eosinophils 0.2 10^3/uL (0-0.7); Absolute Lymphocytes 2.1 10^3/uL (1.2-3.4); Absolute Monocytes 0.6 10^3/uL (0.1-0.6); Mean Corp Hgb Conc. 34.1 g/dL (33.0-37.0); Mean Corpuscular Hgb 30.6 pg (27.0-31.0); Mean Corpuscular Volume 89.5 fL (81.0-99.0); Nucleated Red Blood Cells % 0 %; Platelet Count 235 10^3/uL (130-400); Red Blood Cell Count 4.58 10^6/uL (4.20-5.40); Red Cell Dist. Width 13.2 % (11.5-14.5); White Blood Cell Count 4.9 10^3/uL (4.8-10.8)
--- NOTE | 2024-07-05 10:28 | ED.GENMED ---
History of Present Illness
<Grace Pinedo PA-C - Last Filed: 07/05/24 15:26>
General
Chief Complaint: Chest Pain
Source: patient
Exam Limitations: none
Time Seen by Provider: 07/05/24 10:11
Nursing documentation reviewed up to this point in time: agreed with
History of Present Illness
History of Present Illness:
Patient is an 83-year-old female with past medical history of CVA, hypertension, hyperlipidemia, who presents to the emergency department for evaluation of chest pain. Patient reports that she has been dealing with chronic left shoulder pain for
which she knows that she needs a shoulder replacement however her primary care provider has not cleared her to have the surgery performed. Patient reports that she was having a bad dream and was apparently moaning in her sleep. She reports that
her woke her up around 6 AM this morning. She reports that she noted pain in her left shoulder as well as some pain in the left side of her chest. Patient reports that she went back to bed but when she woke up again, the pain was still
present. Therefore, the patient called 911. Patient states that she has had some intermittent episodes of chest pain as well as some dizziness over the past several months. Patient denies that she sees a learning designer regularly. Patient denies
that the chest pain seems to radiate anywhere. Patient denies any associated shortness of breath. Patient reports that she does feel nauseated, she denies vomiting. Patient reports an intermittent numbness and tingling in the fingers of both of
her hands over the past several months as well. Patient reports that her father did pass away from an MS.
Past History
<Grace Pinedo PA-C - Last Filed: 07/05/24 15:26>
Past History
ED Past Medical History: CVA, GERD, HTN, Hypercholesterolemia, Hypothyroidism and Other (Intracranial bleed, diverticulitis, osteoarthritis)
ED Past Surgical History: Gynecological and Orthopedic
Social History
Tobacco: Non-smoker
Alcohol: Occasional
Drug: None
Personal:
Living: with family
Employment: Retired
Family History
Family History: Other
Review of Systems
<Grace Pinedo PA-C - Last Filed: 07/05/24 15:26>
Review of Systems
Allergies reviewed?: Yes
All Other Systems: ROS reviewed and negative except as documented in HPI and ROS
Constitutional: Reports no symptoms
EENT: Reports no symptoms
Respiratory: Reports cough; Denies trouble breathing
Cardiac: Reports chest pain; Denies syncope
ABD/GI: Reports nausea and constipated; Denies abdominal pain
: Reports no symptoms
Musculoskeletal: Reports no symptoms
Skin: Reports no symptoms
Neurological: Reports dizzy and numbness (intermittent numbness/tingling of the fingers bilaterally)
Endocrine: Reports no symptoms
Hematologic/Lymphatic: Reports no symptoms
Psychiatric: Reports no symptoms
Phy Exam
<Grace Pinedo PA-C - Last Filed: 07/05/24 15:26>
General Physical Exam
General Presentation: well appearing and no apparent distress
General Skin: warm and dry
General Habitus: normal
General Mental: alert
General Hydration: appears well hydrated
ENT Exam
ENT Exam: EOMI, pharynx normal, neck supple and normocephalic
Eye Exam
Eye Exam: PERRL, cornea clear and conjunctiva normal
Cardiovascular Exam
Cardiovascular Exam: regular rate/rhythm, no edema, no murmur and normal peripheral pulses
Pulmonary Exam
Pulmonary Exam: lungs clear, no respiratory distress, no rales, no crackles, no rhonchi, no stridor, no wheezing and no cough
Gastrointestinal Exam
Gastrointestinal Exam: normal bowel sounds, non tender, soft, no organomegaly, no pulsatile mass and non distended
Neurological Exam
Neurological Exam: alert, oriented x3, no motor deficits and speech normal
Musculoskeletal Exam
Musculoskeletal Exam: full ROM, no edema and other (ttp to the left lateral sternal border, no crepitus, no deformity)
Skin Exam
Skin Exam: normal color, warm/dry, no rash and no petechia
Psychiatric Exam
Psychiatric Exam: normal mood/affect
Scores
<Grace Pinedo PA-C - Last Filed: 07/05/24 15:26>
Heart Score for Chest Pain Patients
STEMI patient?: No
History: Moderately Suspicious
ECG: Normal
Age: >/= 65 years
Risk Factors: >/= 3 Risk Factors or History of CAD
Troponin: </= Normal Limit
Heart Score for Chest Pain Patients: 5
Heart Score Risk: 20.3% MACE over next 6 weeks
Course
<Grace Pinedo PA-C - Last Filed: 07/05/24 15:26>
Orders/Labs/Results
Orders:
Orders
07/05/24 10:05
Electrocardiogram (*1) Urgent
Reason for Study: Chest Pain
EKG- Treatment ONCE
07/05/24 10:10
Basic Metabolic Panel Urgent
Complete Blood Count/With Diff Urgent
Troponin I Urgent
07/05/24 10:26
Ondansetron Injectable [Zofran] 4 mg IV NOW STA
07/05/24 10:56
Acetaminophen [Tylenol] 650 mg PO NOW STA
Mag Hydrox/Al Hydrox/Simeth [Maalox] 30 ml Phenobarb/Hyoscy/Atropine/Scop [] 10 ml PO NOW
07/05/24 11:00
Mag Hydrox/Al Hydrox/Simeth [Maalox] 30 ml .ROUTE .STK-MED ONE
Phenobarb/Hyoscy/Atropine/Scop [] 10 ml .ROUTE .STK-MED ONE
07/05/24 12:10
Ketorolac [Toradol] 15 mg IV NOW STA
CR Chest - 2 Views Urgent
Comment:
Reason For Exam: chest pain
07/05/24 13:10
Electrocardiogram (*1) Urgent
Reason for Study: Chest Pain
EKG- Treatment ONCE
07/05/24 13:20
Case Management Consult ONCE
Case Management Consult: VN/Home Care
07/05/24 13:34
Troponin I Urgent
Abnormal Lab Results
07/05/24
10:10
Neutrophils % 41.3 L %
(42.2-75.2)
Monocytes % 12.0 H %
(1.7-9.3)
Chloride 113 H mmol/L
(98-107)
BUN 19 H mg/dl
(7-17)
Creatinine 0.5 L mg/dL
(0.6-1.0)
07/05/24 10:10
07/05/24 10:10
Vital Signs
Initial and Last Documented VS:
Initial Vital Signs
Temp Pulse Resp BP Pulse Ox
97.9 F 73 12 188/78 99
07/05/24 09:58 07/05/24 09:58 07/05/24 09:58 07/05/24 09:58 07/05/24 09:58
Last Documented Vital Signs
Temp Pulse Resp BP Pulse Ox
97.9 F 61 15 184/74 98
07/05/24 09:58 07/05/24 11:30 07/05/24 11:30 07/05/24 11:00 07/05/24 11:30
<Dakota Lyons MD - Last Filed: 07/05/24 14:29>
Orders/Labs/Results
Orders:
Orders
07/05/24 10:05
Electrocardiogram (*1) Urgent
Reason for Study: Chest Pain
EKG- Treatment ONCE
07/05/24 10:10
Basic Metabolic Panel Urgent
Complete Blood Count/With Diff Urgent
Troponin I Urgent
07/05/24 10:26
Ondansetron Injectable [Zofran] 4 mg IV NOW STA
07/05/24 10:56
Acetaminophen [Tylenol] 650 mg PO NOW STA
Mag Hydrox/Al Hydrox/Simeth [Maalox] 30 ml Phenobarb/Hyoscy/Atropine/Scop [] 10 ml PO NOW
07/05/24 11:00
Mag Hydrox/Al Hydrox/Simeth [Maalox] 30 ml .ROUTE .STK-MED ONE
Phenobarb/Hyoscy/Atropine/Scop [] 10 ml .ROUTE .STK-MED ONE
07/05/24 12:10
Ketorolac [Toradol] 15 mg IV NOW STA
CR Chest - 2 Views Urgent
Comment:
Reason For Exam: chest pain
07/05/24 13:10
Electrocardiogram (*1) Urgent
Reason for Study: Chest Pain
EKG- Treatment ONCE
07/05/24 13:20
Case Management Consult ONCE
Case Management Consult: VN/Home Care
07/05/24 13:34
Troponin I Urgent
Abnormal Lab Results
07/05/24
10:10
Neutrophils % 41.3 L %
(42.2-75.2)
Monocytes % 12.0 H %
(1.7-9.3)
Chloride 113 H mmol/L
(98-107)
BUN 19 H mg/dl
(7-17)
Creatinine 0.5 L mg/dL
(0.6-1.0)
07/05/24 10:10
07/05/24 10:10
Vital Signs
Initial and Last Documented VS:
Initial Vital Signs
Temp Pulse Resp BP Pulse Ox
97.9 F 73 12 188/78 99
07/05/24 09:58 07/05/24 09:58 07/05/24 09:58 07/05/24 09:58 07/05/24 09:58
Last Documented Vital Signs
Temp Pulse Resp BP Pulse Ox
97.9 F 61 15 184/74 98
07/05/24 09:58 07/05/24 11:30 07/05/24 11:30 07/05/24 11:00 07/05/24 11:30
<Grace Pinedo PA-C - Last Filed: 07/05/24 15:26>
*Critical Care Note
Total Time (30-74mins, 75-104mins- exclusive of procedures): Not Applicable
<Grace Pinedo PA-C - Last Filed: 07/05/24 15:26>
Update Note
Update Note:
Patient is an 83-year-old female who has been dealing with chronic left shoulder pain for the last few months who presents to the emergency department for evaluation of left-sided chest pain that woke her up out of sleep this morning and then
persisted prompting her emergency department visit. On arrival, patient is hypertensive, afebrile. On exam, patient is well-appearing, she is in no acute distress, she has a normal cardiopulmonary exam. Initial EKG demonstrates no acute ischemic
changes, no evidence of dysrhythmia. Labs were obtained and are notable for a negative troponin, otherwise nonactionable. Chest x-ray demonstrates no acute disease process. Patient with persistent pain following the administration of aspirin and
nitroglycerin. Patient then given a GI cocktail as well as Tylenol and ketorolac with improvement in her pain. A 3-hour troponin and repeat EKG were performed. EKG continues to demonstrate no acute ischemic changes and no evidence of dysrhythmia.
Second troponin is negative. Patient continues to remain well-appearing with stable vital signs. At this time, feel that the patient is safe for discharge to home. She will be encouraged on supportive care measures and be prescribed PPI to use
for the next 2 weeks. She was advised that she should follow-up with a learning designer and provided with cardiology follow-up. Patient is safe for discharge with strict return precautions, she and her family expressed understanding of the plan and
agreed.
ED Attending Note
<Grace Pinedo PA-C - Last Filed: 07/05/24 15:26>
-
Portions of this chart may have been created with voice recognition software.� Occasional wrong word or��sound alike� substitutions may have occurred due to the inherent limitations of voice recognition software.
<Dakota Lyons MD - Last Filed: 07/05/24 14:29>
ED Attending Note
Patient seen and examined by attending physician: Yes
ED Attending Note:
I have seen and evaluated the patient with a [id number] encounter. I have spoken to the advance practicer provider and involved in the medical history, the physical exam, medical decision making.
Evaluation and management service: agree unless noted differently below.
Results interpretation: agree unless noted differently below.
Focused HPI: 83-year-old female with a past medical history as noted presents for evaluation of chest pain. Patient has been dealing with chronic pain in her left shoulder and is supposed to have a shoulder replacement for this issue. She says
that last night she started to notice some pain in her chest as well as the shoulder. Was relatively mild and she was able to get to bed. This morning she says that she got 'worked up' because her son has been having some health issues. She
started to have some increasing pain in the left chest. Came to the ER to be evaluated. She did receive aspirin and nitroglycerin from EMS but this did not seem to help. She since has received GI cocktail and some Toradol and pain seems to have
improved. She denies any associate shortness of breath. She has various other chronic issues including constipation and chronic abdominal discomfort/nausea but denies any other acute complaints.
Physical exam: Awake alert not in distress. Hypertensive but otherwise normal vitals. No cardiac rubs Murmurs. Lungs Sound Clear. Abdomen Nontender. No Edema.
Medical Decision Makin-year-old female presents with atypical chest pain. No response to nitro but did improve with GI cocktail and some Toradol. She did have some associated nausea. Improved with Zofran. EKG shows no acute ischemic
changes. Labs sent off including a CBC and a CMP which showed no clinically significant abnormalities. Troponin undetectable x 2. Chest x-ray no acute disease. Very low suspicion clinically for PE or dissection and in my judgment no indication
for further evaluation of these diagnoses. Suspect that this may be either some referred pain from her chronic shoulder issue or it could be some GERD that was worsened by increased stress today. She is feeling better stable for discharge. Will
refer via our chest pain hotline given her risk factors but low suspicion for anginal chest pain at this point.
Discharge Plan
Departure
Patient Disposition: Home (Routine Discharge)
Date of Disposition: 07/05/24
Time of Disposition: 14:18
Patient with high blood pressure during this ER visit?: Yes
Condition: Good
Covid-19: Not Applicable
Discharge Problem:
Chest pain, Chronic left shoulder pain
Instructions: Chest Pain CBC Follow Up
Prescriptions:
New
omeprazole 20 mg capsule,delayed release(DR/EC)
20 mg PO DAILY 14 Days Qty: 14 0RF
No Action
cranberry 500 MG capsule
500 mg PO DAILYPRN PRN (Reason: Supplement)
venlafaxine [Effexor XR] 150 MG capsule,extended release 24hr
150 mg PO DAILY
Patient Comments:
taken w/ 75mg = 225mg
levothyroxine 100 MCG tablet
100 mcg PO DAILY
multivitamin with folic acid [Tab-A-Karla] 1 TABLET tablet
1 tab PO DAILY
venlafaxine 75 mg capsule,extended release 24hr
75 mg PO DAILY
Patient Comments:
taken w/ 150mg = 225mg
ondansetron HCl 4 mg tablet
4 mg PO BIDPRN PRN (Reason: nausea/vomiting)
ciprofloxacin HCl 500 mg tablet
500 mg PO BID
trazodone 100 mg tablet
100 mg PO HS
ergocalciferol (vitamin D2) 1,250 mcg (50,000 unit) capsule
1,250 mcg PO MO
losartan 100 mg tablet
100 mg PO DAILY
fenofibrate 160 mg tablet
160 mg PO DAILY
albuterol sulfate 90 mcg/actuation HFA aerosol inhaler
2 puff inhalation R Q4HPRN PRN (Reason: shortness of breath or wheezing)
ondansetron 4 mg tablet,disintegrating
4 mg PO TID PRN (Reason: nausea and vomiting) Qty: 20 0RF
lactulose 20 gram/30 mL solution
20 g PO BID Qty: 1200 0RF
Rx Instructions:
Take twice a day until you feel you have had adequate bowel movements
Referrals:
Trinity Rothman, [Family Provider] -
Activity Restrictions/Additional Instructions:
You were seen in the emergency department today for evaluation of left shoulder pain which has been on an ongoing issue for you as well as left-sided chest pain. While you were in the emergency department you had 2 EKGs, blood work, as well as a
chest x-ray. No dangerous abnormalities were found and we do not feel that your chest pain is related to a heart attack today. Your pain could be due to the pain in your shoulder. It could also be related to reflux, therefore we are starting you
on a medication for this. We do recommend that you follow up closely with your primary care provider as well as a learning designer for further evaluation and treatment. You may continue to take your home pain medications. Please return to the
emergency department if you develop severe worsening chest pain, shortness of breath or difficulty breathing, persistent vomiting, if you pass out or feel you are to pass out, or for any other worsening or concerning symptoms.
Interventions
Interventions:
*Risk Screen - Suicide Last Done: 07/05/24 09:58
*General Assessment Last Done: 07/05/24 09:58
*Neglect/Abuse Screening Last Done: 07/05/24 09:58
*ED- Fall Risk Assessment Last Done: 07/05/24 09:58
*ED COVID-19 Vaccine History Last Done: 07/05/24 09:58
ED- Cardiac Assessment Last Done: 07/05/24 10:07
Discharge Date and Time
Print Language: JAPANESE
[2024-07-05 10:44] LABS: Troponin I < 0.012 ng/ml
[2024-07-05] MEDS: ZOFRAN 4 MG IV (10:49)
[2024-07-05 10:54] LABS: Blood Urea Nitrogen 19 mg/dl (7-17); Calcium 9.3 mg/dl (8.4-10.2); Carbon Dioxide 24 mmol/L (22-30); Chloride 113 mmol/L (98-107); Estimated Creatinine Clearance 70 ml/min; Glucose 93 mg/dl (70-99); Sodium 145 mmol/L (135-145); eGFR > 60.00
[2024-07-05] MEDS: MAALOX 40 PO (11:02)
[2024-07-05] MEDS: TYLENOL 650 MG PO (11:02)
[2024-07-05] MEDS: TORADOL 15 MG IV (13:28)
--- NOTE | 2024-07-05 13:36 | CM ---
Case Management Consult completed
Pharmacy verified: Marquita Harden PA
Patient and her live in a one floor in-law suite of [id number]; one step to enter; bath has stall shower w/ seat and grab bar
PLOF; patient reported she is independent with personal care; nearby if assistance is needed and assists with ADLs; Has a cane but does no always utilize it when ambulating
NO recent SNF utilization history; no prior home health visits
Spouse will transport home today
Home Health/VN ordered; she is agreeable; agency options discussed; [facility] is preference; referral sent via [facility]
Patient/family reported that help with medication administration is needed; and considering home health aid to support
Plan: Discharge to home today with home health services
[2024-07-05 14:16] LABS: Troponin I < 0.012 ng/ml
== END 2024-07-05 16:06 | disposition home or self-care (01) ==
LOC: EMR 09:56
PROVIDERS: Physician Assistant Medical; EMERGENCY PHYSICIAN Emergency Medicine; FAMILY PHYSICIAN Family Medicine
DX: R07.89 Other chest pain (principal); M25.512 Pain in left shoulder; G89.29 Other chronic pain; E03.9 Hypothyroidism, unspecified; E78.00 Pure hypercholesterolemia, unspecified; I10 Essential (primary) hypertension; I25.10 Atherosclerotic heart disease of native coronary artery without angina pectoris; Z86.73 Personal history of transient ischemic attack (TIA), and cerebral infarction without residual deficits
CPT/HCPCS: 96374; 96375; 99285; 71046; 80048; 84484; 85025; 93005

== ENCOUNTER → 2024-07-23 10:26 | Outpatient (REF) | payer MEDICARE, SELFPAY | LOC: WDC 10:26 | PROVIDERS: ATTENDING PHYSICIAN Family Medicine | DX: N64.59 Other signs and symptoms in breast (principal) | CPT/HCPCS: 76642; 77062; 77066 ==

== ENCOUNTER 2024-11-24 17:19 | Emergency (ER) | payer MEDICARE, SELFPAY ==
[2024-11-24 17:28] VITALS: BP 162/70
[2024-11-24 17:52] LABS: Hematocrit 38.7 % (37.0-47.0); Hemoglobin 12.9 g/dL (12.0-16.0); Mean Corp Hgb Conc. 33.3 g/dL (33.0-37.0); Mean Corpuscular Volume 90.4 fL (81.0-99.0); Nucleated Red Blood Cells % 0 %; Platelet Count 224 10^3/uL (130-400); Red Cell Dist. Width 13.1 % (11.5-14.5)
[2024-11-24 18:18] LABS: ALT (SGPT) 21 U/L (0-35); AST (SGOT) 26 U/L (14-36); Albumin 4.4 g/dl (3.5-5.0); Alkaline Phosphatase 89 U/L (38-126); Blood Urea Nitrogen 19 mg/dl (7-17); Calcium 10.1 mg/dl (8.4-10.2); Carbon Dioxide 28 mmol/L (22-30); Chloride 107 mmol/L (98-107); Glucose 88 mg/dl (70-99); Potassium 4.2 mmol/L (3.5-5.1); Sodium 140 mmol/L (135-145); Total Protein 6.8 g/dl (6.3-8.2); eGFR > 60.00
[2024-11-24 18:29] LABS: Troponin I 0.015 ng/ml
[2024-11-24 20:06] VITALS: BP 158/67
--- NOTE | 2024-11-24 20:13 | ED.GENMED ---
History of Present Illness
General
Chief Complaint: Breathing Problem
Source: patient and spouse
Exam Limitations: none
Time Seen by Provider: 11/24/24 20:13
History of Present Illness
History of Present Illness:
84-year-old female history of anxiety presents with symptoms that started after starting a new antianxiolytic medication. She started it Sunday. Sunday evening she had leg cramps. By Sunday she was getting palpitations
intermittent chest pain facial swelling. She took it again Sunday. She actually feels better now. Of note per the she is actually getting intermittent chest pain for months. Not exertional.
Past History
Past History
ED Past Medical History: CVA, GERD, HTN, Hypercholesterolemia, Hypothyroidism and Other (Intracranial bleed, diverticulitis, osteoarthritis)
ED Past Surgical History: Gynecological and Orthopedic
Social History
Tobacco: Non-smoker
Alcohol: Occasional
Drug: None
Personal:
Living: with family
Employment: Retired
Family History
Family History: Other
Review of Systems
Review of Systems
All Other Systems: Not applicable
Constitutional: Denies fever or chills
ABD/GI: Reports nausea; Denies abdominal pain
Phy Exam
Physical Exam
Physical Exam:
GENERAL: Alert and oriented in no apparent distress
EYE: Orbits normal.
NECK: Supple, old thyroid scar
ENT: Pharynx without erythema
CARDIAC: Regular rate and rhythm without any obvious murmurs.
LUNGS: Clear breath sounds,normal
ABDOMEN: Soft, without focal tenderness or distention
NEUROLOGICAL: Alert and oriented , grossly non-focal
SKIN: Warm and dry, no rash or lesion, no discoloration, skin intact.
MUSCULOSKELETAL: No edema,no deformity.Good color
PSYCH: Normal and appropriate interaction.
Scores
Heart Failure Risk
Heart Failure Risk Score: Not Applicable
Course
Orders/Labs/Results
Orders:
Orders
11/24/24 17:37
Electrocardiogram (*1) Urgent
Reason for Study: Chest Pain
EKG- Treatment ONCE
11/24/24 17:45
CMP [Comprehensive Metabolic Panel] Urgent
Complete Blood Count/With Diff Urgent
TSH Reflex To Free T4 Urgent
Comment: ADD ON
Troponin I Urgent
11/24/24 20:27
Electrocardiogram (*1) Stat
Reason for Study: Other
Other Reason for Exam: chest pain
EKG- Treatment ONCE
CR Chest - 2 Views Urgent
Comment:
Reason For Exam: cp
11/24/24 20:36
Troponin I Urgent
11/24/24 20:41
Add On- LAB Urgent
Tests Added?: tsh reflex t4
Abnormal Lab Results
11/24/24
17:45
Monocytes % 10.5 H %
(1.7-9.3)
BUN 19 H mg/dl
(7-17)
11/24/24 17:45
11/24/24 17:45
Vital Signs
Initial and Last Documented VS:
Initial Vital Signs
Temp Pulse Resp BP Pulse Ox
98.1 F 78 18 162/70 97
11/24/24 17:28 11/24/24 17:28 11/24/24 17:28 11/24/24 17:28 11/24/24 17:28
Last Documented Vital Signs
Temp Pulse Resp BP Pulse Ox
98.1 F 70 17 158/67 97
11/24/24 17:28 11/24/24 20:15 11/24/24 20:15 11/24/24 20:06 11/24/24 21:27
*Pulse Oximetry
SaO2: 97
Oxygen Mode of Delivery: Room air
Patient hypoxic: no
*EKG
Interpreted by ED Provider?: Yes
Interpretation: normal
Comparison EKG: no changes
Heart Rate: 72
Rate: normal
Rhythm: sinus
[place]: normal axis
Interval: normal interval
QRS Pattern: normal QRS
Ischemia: no ischemia
*Critical Care Note
Total Time (30-74mins, 75-104mins- exclusive of procedures): Not Applicable
Update Note
Update Note:
Repeat EKG sinus bradycardia PVCs. Medically stable. Discharged to follow-up
ED Attending Note
-
Portions of this chart may have been created with voice recognition software.� Occasional wrong word or��sound alike� substitutions may have occurred due to the inherent limitations of voice recognition software.
Discharge Plan
Departure
Patient Disposition: Home (Routine Discharge)
Date of Disposition: 11/24/24
Time of Disposition: 21:37
Patient with high blood pressure during this ER visit?: Yes
Discharge Problem:
Suspect medication effects, Recurring chest pain
Instructions: Chest Pain CBC Follow Up
Prescriptions:
No Action
cranberry 500 MG capsule
500 mg PO DAILYPRN PRN (Reason: Supplement)
venlafaxine [Effexor XR] 150 MG capsule,extended release 24hr
150 mg PO DAILY
Patient Comments:
taken w/ 75mg = 225mg
levothyroxine 100 MCG tablet
100 mcg PO DAILY
multivitamin with folic acid [Tab-A-Karla] 1 TABLET tablet
1 tab PO DAILY
venlafaxine 75 mg capsule,extended release 24hr
75 mg PO DAILY
Patient Comments:
taken w/ 150mg = 225mg
ondansetron HCl 4 mg tablet
4 mg PO BIDPRN PRN (Reason: nausea/vomiting)
ciprofloxacin HCl 500 mg tablet
500 mg PO BID
trazodone 100 mg tablet
100 mg PO HS
ergocalciferol (vitamin D2) 1,250 mcg (50,000 unit) capsule
1,250 mcg PO MO
losartan 100 mg tablet
100 mg PO DAILY
fenofibrate 160 mg tablet
160 mg PO DAILY
albuterol sulfate 90 mcg/actuation HFA aerosol inhaler
2 puff inhalation R Q4HPRN PRN (Reason: shortness of breath or wheezing)
ondansetron 4 mg tablet,disintegrating
4 mg PO TID PRN (Reason: nausea and vomiting) Qty: 20 0RF
lactulose 20 gram/30 mL solution
20 g PO BID Qty: 1200 0RF
Rx Instructions:
Take twice a day until you feel you have had adequate bowel movements
omeprazole 20 mg capsule,delayed release(DR/EC)
20 mg PO DAILY 14 Days Qty: 14 0RF
Referrals:
Trinity Rothman, [Family Provider, Family Practice] - Follow up in 2-3 days
Activity Restrictions/Additional Instructions:
Follow-up closely with cardiology
Also follow-up with your primary physician
As we discussed, stop the new medication.
Return with any progression of concerning issues including worsening nausea palpitations chest pain etc.
Interventions
Interventions:
*Risk Screen - Suicide Last Done: 11/24/24 21:26
*General Assessment Last Done: 11/24/24 21:26
*Neglect/Abuse Screening Last Done: 11/24/24 21:26
*ED- Fall Risk Assessment Last Done: 11/24/24 21:26
*ED COVID-19 Vaccine History Last Done: 11/24/24 21:26
ED- Cardiac Assessment Last Done: 11/24/24 21:27
ED- Pulmonary Assessment Last Done: 11/24/24 21:27
Discharge Date and Time
Print Language: MEXICAN
[2024-11-24 21:11] LABS: Troponin I < 0.012 ng/ml
[2024-11-24 21:24] VITALS: BP 154/61
[2024-11-24 21:27] VITALS: BMI 31.2
== END 2024-11-24 22:08 | disposition home or self-care (01) ==
LOC: EMR 17:19
PROVIDERS: Physician Assistant Medical; EMERGENCY PHYSICIAN Emergency Medicine; FAMILY PHYSICIAN Family Medicine
DX: R07.89 Other chest pain (principal); I49.3 Ventricular premature depolarization; R00.1 Bradycardia, unspecified; E78.00 Pure hypercholesterolemia, unspecified; E03.9 Hypothyroidism, unspecified; I10 Essential (primary) hypertension; Z86.73 Personal history of transient ischemic attack (TIA), and cerebral infarction without residual deficits
CPT/HCPCS: 99285; 71046; 80053; 84443; 84484; 85025; 93005

== ENCOUNTER 2024-12-07 14:11 | Emergency (ER) | payer MEDICARE, SELFPAY ==
[2024-12-07 14:14] VITALS: BP 131/101
[2024-12-07 15:36] VITALS: BMI 30.3
[2024-12-07 15:37] VITALS: BP 141/70
--- NOTE | 2024-12-07 15:49 | ED.GENMED ---
History of Present Illness
General
Chief Complaint: Chest Problem
Source: patient and family
Exam Limitations: none
Time Seen by Provider: 12/07/24 15:26
Nursing documentation reviewed up to this point in time: agreed with
History of Present Illness
History of Present Illness:
Patient is a 4-year-old female with past medical history of hypertension hyperlipidemia diverticulitis intracranial bleed stroke who presents to the ER for evaluation. Patient reports she has had issues with anxiety for the past 1 month. She feels
very stressed that she is in the process of moving. She wakes up feeling very anxious and shaky. She is prescribed lorazepam. Symptoms typically are fine by dinnertime. She is on Effexor. This morning she woke up very anxious shaky had some
chest discomfort .
She has had the same symptoms over the past 1 month. Patient was seen here for an episode of chest pain 11/24 was recommended to follow-up with [facility] cardiology but did not yet do so.
She is currently asymptomatic.
She used to see psychiatry however has not seen a psychiatrist in a while
Past History
Past History
ED Past Medical History: CVA, GERD, HTN, Hypercholesterolemia, Hypothyroidism and Other (Intracranial bleed, diverticulitis, osteoarthritis)
ED Past Surgical History: Gynecological and Orthopedic
Social History
Tobacco: Non-smoker
Alcohol: Occasional
Drug: None
Personal:
Living: with family
Employment: Retired
Family History
Family History: Other
Phy Exam
General Physical Exam
General Presentation: no apparent distress
General age: appears stated age
General Skin: warm and dry
General Habitus: normal
General Mental: alert
General Hydration: appears well hydrated
Cardiovascular Exam
Cardiovascular Exam: regular rate/rhythm, no murmur and normal peripheral pulses
Pulmonary Exam
Pulmonary Exam: lungs clear and no respiratory distress
Neurological Exam
Neurological Exam: alert and oriented x3
Musculoskeletal Exam
Musculoskeletal Exam: full ROM
Skin Exam
Skin Exam: normal color and warm/dry
Psychiatric Exam
Psychiatric Exam: normal mood/affect
Course
Orders/Labs/Results
Orders:
Orders
12/07/24 14:16
EKG [Electrocardiogram (*1)] Urgent
Reason for Study: Palpitations
EKG- Treatment ONCE
12/07/24 15:50
Cardiac Monitoring- Treatment ONCE
IV Insert/Care/Rem.- Treatment PRN
CR Chest - 2 Views Urgent
Comment:
Reason For Exam: cp
12/07/24 16:07
Complete Blood Count/With Diff Urgent
Comprehensive Metabolic Panel Urgent
TSH Reflex To Free T4 Urgent
Comment: ADD ON
Troponin I Urgent
12/07/24 19:39
Add On- LAB Urgent
Tests Added?: tsh with reflexive t4
Abnormal Lab Results
12/07/24
16:07
Neutrophils % 39.8 L %
(42.2-75.2)
Monocytes % 10.7 H %
(1.7-9.3)
Carbon Dioxide 32 H mmol/L
(22-30)
BUN 21 H mg/dl
(7-17)
12/07/24 16:07
12/07/24 16:07
Vital Signs
Initial and Last Documented VS:
Initial Vital Signs
Temp Pulse Resp BP Pulse Ox
98.8 F 66 17 131/101 99
12/07/24 14:14 12/07/24 14:14 12/07/24 14:14 12/07/24 14:14 12/07/24 14:14
Last Documented Vital Signs
Temp Pulse Resp BP Pulse Ox
98.8 F 57 15 141/64 93
12/07/24 14:14 12/07/24 19:45 12/07/24 19:45 12/07/24 19:00 12/07/24 19:45
MDM/Problems Addressed
Differential Diagnosis Includes:
Not limited to anxiety palpitations
MDM/Problems Addressed:
Patient presents for complaints of palpitations anxiety which occurs every morning however resolves by dinnertime. She was seen here November 24 and recommended to see cardiology but did not do so yet. She presents awake alert no acute distress
asymptomatic no cardiac history normal cardiac troponin nontachycardic nontachypneic no shortness of breath stable appearing. She does feel that this is anxiety and has not seen a psychiatrist recommendation as an outpatient. Will have [facility] see
pt to give referral information. I did discuss with patient the importance of seeing cardiology for outpatient monitoring will likely need Holter monitor as well.
Chronic conditions affecting care:
anxiety
*Radiology
Radiology exam reviewed: radiology read reviewed
*Pulse Oximetry
SaO2: 99
Oxygen Mode of Delivery: Room air
Patient hypoxic: no
*EKG
Interpreted by ED Provider?: Yes
Heart Rate: 65
Rate: normal
Rhythm: sinus and PVC's
Ischemia: no ischemia
*Critical Care Note
Total Time (30-74mins, 75-104mins- exclusive of procedures): Not Applicable
ED Attending Note
-
Portions of this chart may have been created with voice recognition software.� Occasional wrong word or��sound alike� substitutions may have occurred due to the inherent limitations of voice recognition software.
Discharge Plan
Departure
Patient Disposition: Home (Routine Discharge)
Date of Disposition: 12/07/24
Time of Disposition: 19:39
Patient with high blood pressure during this ER visit?: Yes
Condition: Fair
Covid-19: Not Applicable
Discharge Problem:
Palpitations
Instructions: Chest Pain CBC Follow Up, BLOOD PRESSURE
Prescriptions:
No Action
cranberry 500 MG capsule
500 mg PO DAILYPRN PRN (Reason: Supplement)
venlafaxine [Effexor XR] 150 MG capsule,extended release 24hr
150 mg PO DAILY
Patient Comments:
taken w/ 75mg = 225mg
levothyroxine 100 MCG tablet
100 mcg PO DAILY
multivitamin with folic acid [Tab-A-Karla] 1 TABLET tablet
1 tab PO DAILY
venlafaxine 75 mg capsule,extended release 24hr
75 mg PO DAILY
Patient Comments:
taken w/ 150mg = 225mg
ondansetron HCl 4 mg tablet
4 mg PO BIDPRN PRN (Reason: nausea/vomiting)
ciprofloxacin HCl 500 mg tablet
500 mg PO BID
trazodone 100 mg tablet
100 mg PO HS
ergocalciferol (vitamin D2) 1,250 mcg (50,000 unit) capsule
1,250 mcg PO MO
losartan 100 mg tablet
100 mg PO DAILY
fenofibrate 160 mg tablet
160 mg PO DAILY
albuterol sulfate 90 mcg/actuation HFA aerosol inhaler
2 puff inhalation R Q4HPRN PRN (Reason: shortness of breath or wheezing)
ondansetron 4 mg tablet,disintegrating
4 mg PO TID PRN (Reason: nausea and vomiting) Qty: 20 0RF
lactulose 20 gram/30 mL solution
20 g PO BID Qty: 1200 0RF
Rx Instructions:
Take twice a day until you feel you have had adequate bowel movements
omeprazole 20 mg capsule,delayed release(DR/EC)
20 mg PO DAILY 14 Days Qty: 14 0RF
Referrals:
trista aparicio [Other]
Trinity Rothman DO [Family Provider, Family Practice]
Mariah Aparicio MD [Active, Cardiology]
Activity Restrictions/Additional Instructions:
As discussed please follow-up with your family doctor for reevaluation in the next 2 days as well as cardiology. Cardiology should reach out to you to schedule appoint next 2 days if you do not please give them a call. In addition you were given
outpatient resources for psychiatry.
Avoid caffeine. Return if any worsening symptoms.
Interventions
Interventions:
*Risk Screen - Suicide Last Done: 12/07/24 14:16
*General Assessment Last Done: 12/07/24 14:16
*Neglect/Abuse Screening Last Done: 12/07/24 14:16
*ED- Fall Risk Assessment Last Done: 12/07/24 15:40
*ED COVID-19 Vaccine History Last Done: 12/07/24 14:16
*Nursing Disposition Last Done: 12/07/24 20:20
ED- Cardiac Assessment Last Done: 12/07/24 15:40
ED- Pulmonary Assessment Last Done: 12/07/24 15:40
Discharge Date and Time
Discharge Date/Time: 12/07/24 20:21
Print Language: AZERBAIJANI
[2024-12-07 16:18] LABS: Hematocrit 38.6 % (37.0-47.0); Hemoglobin 12.8 g/dL (12.0-16.0); Mean Corp Hgb Conc. 33.2 g/dL (33.0-37.0); Mean Corpuscular Volume 91.0 fL (81.0-99.0); Nucleated Red Blood Cells % 0 %; Platelet Count 209 10^3/uL (130-400); Red Cell Dist. Width 13.1 % (11.5-14.5)
[2024-12-07 16:37] LABS: ALT (SGPT) 18 U/L (0-35); AST (SGOT) 23 U/L (14-36); Albumin 4.1 g/dl (3.5-5.0); Alkaline Phosphatase 63 U/L (38-126); Blood Urea Nitrogen 21 mg/dl (7-17); Calcium 10.1 mg/dl (8.4-10.2); Carbon Dioxide 32 mmol/L (22-30); Chloride 106 mmol/L (98-107); Estimated Creatinine Clearance 61 ml/min; Glucose 91 mg/dl (70-99); Potassium 4.3 mmol/L (3.5-5.1); Sodium 140 mmol/L (135-145); Total Protein 6.3 g/dl (6.3-8.2); eGFR > 60.00
[2024-12-07 16:41] LABS: Troponin I < 0.012 ng/ml
[2024-12-07 17:12] VITALS: BP 143/95
[2024-12-07 18:00] VITALS: BP 179/62
[2024-12-07 19:00] VITALS: BP 141/64
== END 2024-12-07 20:21 | disposition home or self-care (01) ==
LOC: EMR 14:11
PROVIDERS: Nurse Practitioner; EMERGENCY PHYSICIAN Emergency Medicine; FAMILY PHYSICIAN Family Medicine
DX: R00.2 Palpitations (principal); F41.9 Anxiety disorder, unspecified; E03.9 Hypothyroidism, unspecified; E78.00 Pure hypercholesterolemia, unspecified; I10 Essential (primary) hypertension; Z86.73 Personal history of transient ischemic attack (TIA), and cerebral infarction without residual deficits
CPT/HCPCS: 99285; 71046; 80053; 84443; 84484; 85025; 93005

== ENCOUNTER 2025-02-19 16:50 | Emergency (ER) | payer MEDICARE, SELFPAY ==
[2025-02-19 16:56] VITALS: BP 175/80
[2025-02-19 17:56] LABS: Hematocrit 40.1 % (37.0-47.0); Hemoglobin 13.1 g/dL (12.0-16.0); Mean Corp Hgb Conc. 32.7 g/dL (33.0-37.0); Mean Corpuscular Volume 95.0 fL (81.0-99.0); Nucleated Red Blood Cells % 0 %; Platelet Count 254 10^3/uL (130-400); Red Cell Dist. Width 13.0 % (11.5-14.5)
[2025-02-19 18:09] LABS: ALT (SGPT) 26 U/L (0-35); AST (SGOT) 33 U/L (14-36); Albumin 4.3 g/dl (3.5-5.0); Alkaline Phosphatase 71 U/L (38-126); Blood Urea Nitrogen 17 mg/dl (7-17); Calcium 10.0 mg/dl (8.4-10.2); Carbon Dioxide 29 mmol/L (22-30); Chloride 103 mmol/L (98-107); Glucose 133 mg/dl (70-99); Potassium 4.3 mmol/L (3.5-5.1); Sodium 138 mmol/L (135-145); Total Protein 6.9 g/dl (6.3-8.2); eGFR > 60.00
--- NOTE | 2025-02-19 18:32 | ED.GENMED ---
History of Present Illness
General
Chief Complaint: Cold/Flu/URI Symptoms
Time Seen by Provider: 02/19/25 17:15
History of Present Illness
History of Present Illness:
84-year-old female with history of hypertension hyperlipidemia presenting to the emergency department for persistent cough and shortness of breath. Patient reports symptoms started over a week ago. She was seen at urgent care, started on
antibiotics for suspected pneumonia. She reports that she did have some interval improvement, however last night reports that her symptoms started to worsen again, had difficulty sleeping due to shortness of breath. Notes some left-sided chest
pain with deep inspiration. Denies fever, does report some chills. Denies any known sick contacts. Denies abdominal pain or GI symptoms. Denies any significant swelling to her lower extremities. Denies additional acute medical complaints
Past History
Past History
ED Past Medical History: CVA, GERD, HTN, Hypercholesterolemia, Hypothyroidism and Other (Intracranial bleed, diverticulitis, osteoarthritis)
ED Past Surgical History: Gynecological and Orthopedic
Social History
Tobacco: Non-smoker
Alcohol: Occasional
Drug: None
Personal:
Living: with family
Employment: Retired
Family History
Family History: Other
Phy Exam
Physical Exam
Physical Exam:
General: Well-appearing, no clinical signs of dehydration, nontoxic and in no acute distress
HEENT: protecting airway
Neck: appears supple
CV: Normal heart rate, regular rhythm
Resp: No accessory muscle use, no increased work of breathing, lungs clear to auscultation bilaterally
Abd: No distention
Extremities: No deformities, no swelling
Neuro: alert, no focal neurologic deficit
: deferred
Rectal: deferred
Psych: Normal affect
Skin: Intact
Course
Orders/Labs/Results
Orders:
Orders
02/19/25 17:43
Complete Blood Count/With Diff Urgent
Comprehensive Metabolic Panel Urgent
02/19/25 18:15
Electrocardiogram (*1) Urgent
Reason for Study: Chest Pain
EKG- Treatment ONCE
CR Chest - 2 Views Urgent
Comment:
Reason For Exam: cough, sob
02/19/25 18:19
COVID-19 Antigen Urgent
Source: Nasal Swab
Troponin I Urgent
Influenza A+B Rapid Molecular Urgent
DULCE Source: Nasal Swab
Specimen Description:
Abnormal Lab Results
02/19/25
17:43
MCHC 32.7 L g/dL
(33.0-37.0)
Absolute Lymphs (auto) 0.6 L 10^3/uL
(1.2-3.4)
Neutrophils % 86.4 H %
(42.2-75.2)
Lymphocytes % 10.0 L %
(20.5-51.1)
Glucose 133 H mg/dl
(70-99)
02/19/25 17:43
02/19/25 17:43
Vital Signs
Initial and Last Documented VS:
Initial Vital Signs
Temp Pulse Resp BP Pulse Ox
98.6 F 79 20 175/80 96
02/19/25 16:56 02/19/25 16:56 02/19/25 16:56 02/19/25 16:56 02/19/25 16:56
Last Documented Vital Signs
Temp Pulse Resp BP Pulse Ox
97.9 F 64 22 133/92 96
02/19/25 22:01 02/19/25 22:01 02/19/25 22:01 02/19/25 22:01 02/19/25 22:01
MDM/Problems Addressed
MDM/Problems Addressed:
84-year-old female with history of hypertension and hyperlipidemia presenting for cough and shortness of breath. Vital signs on arrival are significant for high blood pressure.
On exam, patient is resting comfortably, no acute respiratory distress. Overall reassuring examination of the lungs. No increased work of breathing. Mild congestion. Concern for possible viral syndrome versus failure of outpatient therapy of
previously diagnosed pneumonia. No signs of volume overload with lower suspicion for CHF. No present chest pain with lower suspicion for ACS. Will screen with EKG. Plan for chest x-ray imaging and laboratory analysis.
21:45 -patient's labs are unremarkable. Chest x-ray without significant sign of pneumonia. At this time suspect bronchitis. Patient ambulated, normal oxygenation. Patient had been prescribed steroids by the urgent care, had her first dose
yesterday, has a prescription for the next 6 days. Advise using this prescription as well as an albuterol inhaler that she was also prescribed. Patient feels comfortable with this plan. However strict return precautions communicated to patient
verbalized understanding
*Pulse Oximetry
SaO2: 96
Oxygen Mode of Delivery: Room air
Patient hypoxic: no
*EKG
Interpreted by ED Provider?: Yes
EKG Intrepretation Date: 02/19/25
EKG Intrepretation Time: 23:10
Interpretation: normal
Heart Rate: 72
Rate: normal
Rhythm: sinus
[place]: normal axis
Interval: normal interval
QRS Pattern: normal QRS
Ischemia: no ischemia
*Critical Care Note
Total Time (30-74mins, 75-104mins- exclusive of procedures): Not Applicable
ED Attending Note
-
Portions of this chart may have been created with voice recognition software.� Occasional wrong word or��sound alike� substitutions may have occurred due to the inherent limitations of voice recognition software.
Discharge Plan
Departure
Patient Disposition: Home (Routine Discharge)
Date of Disposition: 02/19/25
Time of Disposition: 21:51
Patient with high blood pressure during this ER visit?: No
Condition: Good
Discharge Problem:
Bronchitis
Instructions: Acute Bronchitis, Adult (DC)
Prescriptions:
No Action
cranberry 500 MG capsule
500 mg PO DAILYPRN PRN (Reason: Supplement)
venlafaxine [Effexor XR] 150 MG capsule,extended release 24hr
150 mg PO DAILY
Patient Comments:
taken w/ 75mg = 225mg
levothyroxine 100 MCG tablet
100 mcg PO DAILY
multivitamin with folic acid [Tab-A-Karla] 1 TABLET tablet
1 tab PO DAILY
venlafaxine 75 mg capsule,extended release 24hr
75 mg PO DAILY
Patient Comments:
taken w/ 150mg = 225mg
ondansetron HCl 4 mg tablet
4 mg PO BIDPRN PRN (Reason: nausea/vomiting)
ciprofloxacin HCl 500 mg tablet
500 mg PO BID
trazodone 100 mg tablet
100 mg PO HS
ergocalciferol (vitamin D2) 1,250 mcg (50,000 unit) capsule
1,250 mcg PO MO
losartan 100 mg tablet
100 mg PO DAILY
fenofibrate 160 mg tablet
160 mg PO DAILY
albuterol sulfate 90 mcg/actuation HFA aerosol inhaler
2 puff inhalation R Q4HPRN PRN (Reason: shortness of breath or wheezing)
ondansetron 4 mg tablet,disintegrating
4 mg PO TID PRN (Reason: nausea and vomiting) Qty: 20 0RF
lactulose 20 gram/30 mL solution
20 g PO BID Qty: 1200 0RF
Rx Instructions:
Take twice a day until you feel you have had adequate bowel movements
omeprazole 20 mg capsule,delayed release(DR/EC)
20 mg PO DAILY 14 Days Qty: 14 0RF
Referrals:
Trinity Rothman DO [Family Provider, Family Practice]
Activity Restrictions/Additional Instructions:
You were seen in the emergency department for cough and shortness of breath
You were found to have reassuring vital signs, laboratory analysis and chest x-ray imaging. We suspect that you have bronchitis. Please continue to take the prednisone as prescribed to you at the urgent care. Please also use the albuterol inhaler
every 4-6 hours as needed.
Please follow-up closely with your primary care physician.
Return to the emergency department for any worsening of your symptoms, or any development of chest pain, difficulty breathing, abdominal pain with persistent vomiting and inability to tolerate food or liquid by mouth (concern for dehydration),
weakness, headache or confusion, fever greater than 100.4, or any additional symptoms that are concerning to you.
Thank you for choosing [facility].
Interventions
Interventions:
*Risk Screen - Suicide Last Done: 02/19/25 16:56
*General Assessment Last Done: 02/19/25 17:41
*Neglect/Abuse Screening Last Done: 02/19/25 17:41
*ED- Fall Risk Assessment Last Done: 02/19/25 17:41
*ED COVID-19 Vaccine History Last Done: 02/19/25 16:56
*ED Influenza Vaccine History Last Done: 02/19/25 16:56
*Nursing Disposition Last Done: 02/19/25 22:01
ED- Pulmonary Assessment Last Done: 02/19/25 17:26
Discharge Date and Time
Discharge Date/Time: 02/19/25 22:24
Print Language: LITHUANIAN
[2025-02-19 18:41] LABS: COVID-19 Antigen Negative (Negative)
[2025-02-19 18:48] LABS: Troponin I < 0.012 ng/ml
[2025-02-19 19:39] VITALS: BP 152/82
[2025-02-19 22:01] VITALS: BP 133/92
== END 2025-02-19 22:24 | disposition home or self-care (01) ==
LOC: EMR 16:50
PROVIDERS: EMERGENCY PHYSICIAN Student in an Organized Health Care Education/Training Program; FAMILY PHYSICIAN Family Medicine
DX: J40 Bronchitis, not specified as acute or chronic (principal); E03.9 Hypothyroidism, unspecified; E78.00 Pure hypercholesterolemia, unspecified; I10 Essential (primary) hypertension; Z86.73 Personal history of transient ischemic attack (TIA), and cerebral infarction without residual deficits; Z11.52 Encounter for screening for COVID-19
CPT/HCPCS: 99285; 71046; 80053; 84484; 85025; 87502; 87811; 93005